=== PATIENT | female | born 1970 | race Caucasian/White ===

== ENCOUNTER 2018-04-11 16:50 | Emergency (ER) | payer MEDICAID ==
[~2018-04-11] VITALS: Ht 154.9 cm; Wt 90.3 kg
[2018-04-11 17:43] VITALS: Ht 154.9 cm; Wt 90.3 kg
[2018-04-11 18:05] LABS: BASOPHIL % 0.8 % (0-2); PLATELET COUNT 341 x10^3mcL (130-400)
[2018-04-11 18:10] LABS: RED CELL DISTRIBUTION WIDTH 15.5 % (11.5-14.5)
[2018-04-11 18:17] LABS: CALCIUM 9.5 mg/dL (8.5-10.1); CARBON DIOXIDE 24.6 mmol/L (21-32); CHLORIDE SERUM 97 mmol/L (98-107); CREATININE SERUM 0.6 mg/dL (0.6-1.0); GFR1 > 60 mL/min; GLUCOSE SERUM 434 mg/dL (74-106); POTASSIUM SERUM 3.9 mmol/L (3.5-5.1); SODIUM SERUM 134 mmol/L (136-145)
[2018-04-11 18:22] LABS: ALBUMIN 3.6 g/dL (3.4-5.0); ALKALINE PHOSPHATASE 136 U/L (46-116); ALT/SGPT 84 U/L (14-59); AMYLASE 56 U/L (25-115); AST/SGOT 60 U/L (15-37); LIPASE 215 IU/L (73-393)
[2018-04-11 23:10] VITALS: BP 110/75
== END 2018-04-11 23:15 | disposition home or self-care (01) ==
LOC: ED 16:50
PROVIDERS: Emergency Medicine
DX: N76.0 Acute vaginitis (principal); I10 Essential (primary) hypertension; E11.65 Type 2 diabetes mellitus with hyperglycemia; E03.9 Hypothyroidism, unspecified
CPT/HCPCS: 36415; 82962; 87491; 87591; J0696; J1815